=== PATIENT | female | born 1950 | race African-American/Black ===

== ENCOUNTER → 2017-06-04 | Outpatient (CLI) | payer MEDICARE, OTHER ==
--- NOTE | ~2017-06-04 | US85 ---
[facility]. [facility] A Service of [facility] & [facility] / [facility] RADIOLOGY TEXT RESULTS PATIENT: LUIS WOO LOCATION: SNIV : 46 UNIT #: [id number] AGE: [address]: Dorothy Sales APRN SEX: F ORDER DR: [id number] [address] [id number] O MR#: [id number] Acc #: [id number] NAME: LUIS WOO : 1950 SEX: F STUDY DATE/TIME: 06/04/2017 13:39 UNIT: SNIV ROOM: STUDY DESCRIPTION: [facility] or [facility] Attending Physician: Dorothy Sales A.P.R.N. Referring Physician: Dorothy Sales A.P.R.N. Ordering Physician: Dorothy Sales A.P.R.N. Primary Care Physician: Urszula Sunshine M.D. MEDICAL IMAGING REPORT This report is preliminary unless electronic signature is present. EXAM Right lower extremity venous Doppler REASON FOR EXAM Right leg edema. FINDINGS The right common femoral vein, femoral vein, popliteal vein, tibial veins demonstrate patency and compressibility. There is phasic and spontaneous flow with respiration and augmentation. Proximal and distal greater saphenous vein is patent and compressible. IMPRESSION No evidence for right lower extremity deep vein thrombosis. Dictated by... Joel Berry M.D. THIS IS AN ELECTRONICALLY VERIFIED REPORT Joel Berry M.D. at 06/05/2017 10:33 AM ONOFRE/rashawn TD: 06/05/2017 02:24 JOB #: [id number] MEDICAL IMAGING REPORT Page 1 of 1
== END | disposition home or self-care (01) ==
LOC: SNIV 13:15
DX: L03.115 Cellulitis of right lower limb (principal); R60.0 Localized edema
CPT/HCPCS: 93971